=== PATIENT | male | born 1945 | race Caucasian/White ===

== ENCOUNTER → 2016-09-29 | Outpatient (CLI) | payer OTHER ==
--- NOTE | 2016-09-29 14:08 | DI ---
Indication: ITS.REASON: DIAGNOSTIC IMAGING Procedure: CHEST, PA LATERAL: Encounter: Initial Comparison: None Technique: PA and lateral radiographs of the chest were obtained. Findings: Lungs and airways: Normal lung volumes. No focal airspace consolidation. Normal pulmonary vasculature. Pleura: No pleural effusion or pneumothorax. Heart and mediastinum: Coronary arterial and thoracic aortic atherosclerotic calcifications. The heart is normal in size. Osseous structures and soft tissues: No acute osseous abnormality is seen. 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 Impression: No acute cardiopulmonary process. .
--- NOTE | 2016-10-01 11:08 | ECHOF ---
ECHOCARDIOGRAM REPORT DATE OF PROCEDURE September 29, 2016 This is a two-dimensional echo with spectral Doppler, color-flow and M-mode. Left atrium is dilated. Left ventricle end-diastolic dimension is increased. Left ventricle wall thickness is normal. LV systolic function is normal with ejection fraction of 66%. Right atrium is normal. Right ventricle is normal. Aortic root dimension is normal. Mitral annulus is calcified. Mitral valve leaflets are normal with mild mitral regurgitation. Aortic valve shows fibrocalcific changes with no stenosis. [id number] aortic insufficiency is present. Tricuspid valve shows mild tricuspid regurgitation with mild pulmonary hypertension with estimated pulmonary artery systolic pressure of 42. Pulmonary valve shows trace of pulmonary insufficiency. There is no pericardial effusion. IMPRESSION 1. Normal LV systolic function with ejection fraction of 66%. 2. Left ventricular dilation. 3. Left atrial dilation. 4. Aortic sclerosis with [id number] aortic insufficiency. 5. Mitral annulus calcification with mild mitral regurgitation. 6. Trace of pulmonary insufficiency. 7. Mild tricuspid regurgitation with mild pulmonary hypertension with estimated pulmonary artery systolic pressure of 42. MTDD
== END ==
LOC: IMA 12:32
DX: Z02.89 Encounter for other administrative examinations (principal)
CPT/HCPCS: 93306